=== PATIENT | male | born 1970 | race Caucasian/White ===

== ENCOUNTER 2017-02-06 20:47 | Inpatient (IN) | payer MEDICARE ==
--- NOTE | ~2017-02-06 | PN ---
Unit #: [id number] #: [id number] Patient: GUANAKITO MATIAS [id number] [facility] [address] [place] [address] [id number] I MR#: [id number] NAME: GUANAKITO MATIAS. ROOM: P131 Age: 46 Sex: M Admission Date: 02/07/2017 : 1970 Attending Physician: Joe Nesbitt M.D. Admitting Physician: Joe Nesbitt M.D. Primary Care Physician: Primary Care Physician Katie NEWBY PROGRESS NOTES DATE 02/10/2017 DISCUSSION The patient continues to endorse positive auditory hallucinations stating that the voice tell him that "he is not worth a shit." He remains seclusive to room but did tolerate initiation of Zyprexa last evening upper titration of this medication may need to occur if the patient continues to endorse positive suicidal ideation though there does perhaps seem to be (1) of malingering years. The patient states that he is currently homeless. Dictated by... Joe Nesbitt M.D. CB/ernie TD: 02/11/2017 00:57 JOB #: [id number] [facility] PROGRESS NOTES Page 1 of 1 X Joe Nesbitt MD PROGRESS NOTE
--- NOTE | ~2017-02-06 | DS ---
Unit #: [id number] #: [id number] Patient: GUANAKITO MATIAS [id number] [place] [address] [id number] I MR#: [id number] NAME: GUANAKITO MATIAS. ROOM: 31 Age: 46 Sex: M Admission Date: 02/07/2017 : 1970 Discharge Date: 02/11/2017 Attending Physician: Joe Nesbitt M.D. Primary Care Physician: Primary Care Physician No DISCHARGE SUMMARY REASON FOR ADMISSION The patient is a 46-year-old white male, who reports a history of schizoaffective disorder, admitted voicing positive suicidal ideation and auditory hallucinations. HOSPITAL COURSE The patient was admitted to the [address] [place] [address] unit and remained at bed throughout much if not all of his stay in the hospital, leaving this bed only for meals. The patient had been admitted to the hospital on Abilify, but on 02/09/2017, stated to this physician that Abilify was "shit." This medication was therefore discontinued. The patient instead begun on Zyprexa 10 mg at h.s., which he tolerated without complaint. The patient complained of severe back pain and for this reason, did not participate to any significant degree within the therapeutic milieu during stay in the hospital. On 02/11/2017, the patient unexpectedly demanded discharge from the hospital. He denied suicidal or homicidal ideation at that time and denied any psychotic symptoms. He was not felt to meet criteria for involuntary hospitalization and as per his request, discharge was ordered. FINAL DIAGNOSIS Schizoaffective disorder. DISPOSITION ON DISCHARGE The patient is discharged on the following medications; Zyprexa 10 mg at h.s. for psychosis. DISCHARGE INSTRUCTIONS No dietary or physical restrictions were placed upon the patient at the time of discharge. PROGNOSIS His prognosis is considered guarded. Dictated by... Joe Nesbitt M.D. CB/linda TD: 02/12/2017 03:27 JOB #: [id number] Unit #: [id number] #: [id number] Patient: GUANAKITO MATIAS DISCHARGE SUMMARY Page 1 of 1 X Joe Nesbitt MD DISCHARGE SUMMARY
--- NOTE | ~2017-02-06 | PN ---
Unit #: [id number] #: [id number] Patient: GUANAKITO MATIAS [id number] [facility] [address] [place] [address] [id number] MR#: [id number] NAME: GUANAKITO MATIAS. ROOM: P131 Age: 46 Sex: M Admission Date: 02/07/2017 : 1970 Attending Physician: Joe Nesbitt M.D. Admitting Physician: Joe Nesbitt M.D. Primary Care Physician: Primary Care Physician Katie NEWBY PROGRESS NOTES DATE 02/08/2017 DISCUSSION The patient remains abed. Staff reporting that he "sleeps a lot." We are encouraging increased participation in therapeutic milieu and continue current pharmacotherapy. Dictated by... Joe Nesbitt M.D. CB/sandrita TD: 02/08/2017 15:32 JOB #: [id number] [facility] PROGRESS NOTES Page 1 of 1 X Joe Nesibtt MD X PROGRESS NOTE
--- NOTE | ~2017-02-06 | HP ---
Unit #: [id number] #: [id number] Patient: SONNY MATIAS [id number] [place] [address] [id number] I MR#: [id number] NAME: SONNY MATIAS. ROOM: P131 Age: 46 Sex: M Admission Date: 02/07/2017 : 1970 Attending Physician: Joe Nesbtit M.D. Admitting Physician: Joe Nesbitt M.D. Primary Care Physician: Primary Care Physician No HISTORY AND PHYSICAL HISTORY OF PRESENT ILLNESS Sonny is a 46 year old admitted to [address] [place] [address] because of his drug use which includes IV methamphetamine. He presented to a local emergency room threatening to kill himself with a knife. PAST MEDICAL HISTORY 1. History of illicit substance abuse to include IV meth. 2. Hepatitis C. PAST SURGICAL HISTORY Low back. ALLERGIES No known drug allergies. SOCIAL HISTORY Smokes 1 pack per day. Drinks alcohol rarely. Admits to a history of illicit substance abuse to include IV methamphetamine. FAMILY HISTORY Medically noncontributory. REVIEW OF SYSTEMS He does not answer all questions appropriately. There are no reports of nausea, vomiting or diarrhea. He has had no cough or increased temperature. CURRENT MEDICATIONS 1. Nicotine patch 14 mg daily. 2. Abilify 10 mg daily. 3. Milk of Magnesia p.r.n. 4. Maalox p.r.n. 5. Tylenol p.r.n. PHYSICAL EXAMINATION GENERAL: Alert, well-nourished, in no apparent distress. VITAL SIGNS: Blood pressure 140/80, heart rate 100, respirations 16, temperature 98.6. WEIGHT: 145. HEIGHT: 5 feet 9 inches. SKIN: Warm and dry without rash or lesion. HEENT: Normocephalic. TMs not viewed. Oral and nasal passages clear. Conjunctivae clear. PERRLA. EOMs intact. Unit #: [id number] #: [id number] Patient: SONNY MATIAS NECK: Supple without lymphadenopathy or thyromegaly. HEART: Regular rate and rhythm without murmur. LUNGS: Clear. ABDOMEN: Soft, nontender. : Not done. EXTREMITIES: No evidence of cyanosis, clubbing or edema. Moves all without focal deficit. NEUROLOGICAL: Unable to complete extended exam. He does move all extremities without focal deficit. Hand business process lead is equal and gait is normal. IMPRESSION Psychiatric admission. RECOMMENDATIONS PSYCHIATRIC: Per psychiatrist. MEDICAL: See no contraindications to participate in facility's activities. MEDICAL PROGNOSIS Good. MEDICAL CONDITION Stable. Dictated by... Chiara Hernandez P.A.-C. for Ashli Anderson/sandrita TD: 02/07/2017 22:04 JOB #: [id number] HISTORY AND PHYSICAL Page 1 of 1 X Chiara Hernandez HISTORY AND PHYSICAL
--- NOTE | ~2017-02-06 | PN ---
Unit #: [id number] #: [id number] Patient: GUANAKITO MATIAS [id number] [facility] [address] [place] [address] [id number] Rodrigo MR#: [id number] NAME: GUANAKITO MATIAS. ROOM: P131 Age: 46 Sex: M Admission Date: 02/07/2017 : 1970 Attending Physician: Joe Nesbitt M.D. Admitting Physician: Joe Nesbitt M.D. Primary Care Physician: Primary Care Physician Katie NEWBY PROGRESS NOTES DATE 02/09/2017 DISCUSSION The patient is once again abed today but is aroused and complains of continuing to hear voices which are greatly distressing to him. He states that Abilify is not affective in addressing his symptoms. I will therefore discontinue this medication and begin Zyprexa medication which the patient reports a history of positive response. Dictated by... Joe Nesbitt M.D. CB/ernie TD: 02/10/2017 02:10 JOB #: [id number] [facility] PROGRESS NOTES Page 1 of 1 X Joe Nesbitt MD X PROGRESS NOTE
[~2017-02-06 20:47] MED LIST: METOPROLOL SUC100 MG PO
[2017-02-06 22:36] LABS: URINE SOURCE CLEAN CATCH
[2017-02-06 22:42] LABS: URINE APPEARANCE CLEAR; URINE BILIRUBIN NEG (NEG); URINE BLOOD TRACE (NEG); URINE COLOR YELLOW; URINE GLUCOSE NEG (NEG); URINE KETONE NEG (NEG); URINE LEUKOCYTE ESTERASE TRACE (NEG); URINE NITRATE NEG (NEG); URINE PH 6.5 (5-8); URINE PROTEIN NEG (NEG); URINE SPECIFIC GRAVITY 1.007 (1.003-1.035); URINE UROBILINOGEN 0.2 MG/DL (NEG)
[2017-02-06 22:44] LABS: URBCS1 AUWI 0-2 /[HPF] (0-2); URINE BACTERIA AUWI NEG (NEGATIVE); URINE SQUAMOUS EPITHELIAL CELL NONE SEEN /[HPF]; UWBCS1 AUWI 0-2 (0-5)
[2017-02-06 22:46] LABS: CULTURE INDICATED? NO
[2017-02-06 22:52] LABS: AMPHETAMINE POS (NEG); BARBITURATES NEG (NEG); BENZODIAZEPINES NEG (NEG); COCAINE NEG (NEG); MARIJUANA NEG (NEG); OPIATES NEG (NEG); TRICYCLIC ANTIDEPRESSANTS NEG (NEG); U METHADONE NEG (NEG)
== END 2017-02-11 14:00 | disposition home or self-care (01) | DRG 885 ==
LOC: CFTX 20:47 → P1S 02-07 02:30
PROVIDERS: Emergency Medicine
DX: F25.8 Other schizoaffective disorders (principal); R45.851 Suicidal ideations; F17.210 Nicotine dependence, cigarettes, uncomplicated
CPT/HCPCS: 80307; 81003; 99285